=== PATIENT | female | born 1950 | race Two or more races ===

== ENCOUNTER 2017-08-10 07:00 | Inpatient (IN) | payer OTHER ==
[~2017-08-10] VITALS: Ht 152.4 cm; Wt 93.0 kg
[~2017-08-10 07:00] MED LIST: HYZAAR 100-121 UDTAB PO; JANUVIA25 MG PO; LIPITOR20 MG PO; NORVASC10 MG PO; TOPROL XL25 MG PO
[2017-08-10] MEDS ORDERED: CYMBALTA60 MG PO (09:28)
[2017-08-10] MEDS ORDERED: NEURONTIN300 MG PO (09:29)
[2017-08-10] MEDS ORDERED: CLONAZEPAM2 MG PO (09:29)
[2017-08-10] MEDS ORDERED: VITAMIN B-12500 MCG PO (09:30)
[2017-09-08] MEDS ORDERED: GABAPENTIN800 MG PO (11:16)
[2017-09-08] MEDS ORDERED: DOCUSATE SODIU100 MG PO (11:17)
[2017-09-08] MEDS ORDERED: AMOX-CLAV 875-1 EACH PO (11:18)
[2017-09-08] MEDS ORDERED: CLONAZEPAM1 MG PO (11:18)
[2017-09-08] MEDS ORDERED: PERCOCET 5-3251 EACH PO (11:18)
== END 2017-09-08 14:50 | DRG 460 ==
LOC: O/R 08-17 04:50 → SURH 08-17 04:50 → O/R 09-07 05:43 → SURH 09-07 07:00 → PED 09-07 15:37
PROVIDERS: Orthopaedic Surgery Orthopaedic Surgery of the Spine
PROC: 0SG00AJ Fusion of Lumbar Vertebral Joint with Interbody Fusion Device, Posterior Approach, Anterior Column, Open Approach (ICD-10-PCS; 2017-09-07)
PROC: 0ST20ZZ Resection of Lumbar Vertebral Disc, Open Approach (ICD-10-PCS; 2017-09-07)
PROC: 07DS3ZZ Extraction of Vertebral Bone Marrow, Percutaneous Approach (ICD-10-PCS; 2017-09-07)
PROC: 0SG00A0 Fusion of Lumbar Vertebral Joint with Interbody Fusion Device, Anterior Approach, Anterior Column, Open Approach (ICD-10-PCS; principal; 2017-09-07 07:00)
DX: M48.061 Spinal stenosis, lumbar region without neurogenic claudication (principal); M47.26 Other spondylosis with radiculopathy, lumbar region; M51.16 Intervertebral disc disorders with radiculopathy, lumbar region; E11.9 Type 2 diabetes mellitus without complications; I10 Essential (primary) hypertension

== ENCOUNTER 2017-09-08 17:59 | Inpatient (IN) | payer OTHER ==
[~2017-09-08] VITALS: Ht 154.9 cm; Wt 93.4 kg
[~2017-09-08 17:59] MED LIST changes: +AMOX-CLAV 875-1 EACH PO; +CLONAZEPAM1 MG PO; +CLONAZEPAM2 MG PO; +CYMBALTA60 MG PO; +DOCUSATE SODIU100 MG PO; +GABAPENTIN800 MG PO; +NEURONTIN300 MG PO; +PERCOCET 5-3251 EACH PO; +VITAMIN B-12500 MCG PO
[2017-09-17] MEDS ORDERED: METOPROLOL TAR100 MG PO (12:19)
[2017-09-17] MEDS ORDERED: CYMBALTA60 MG PO (12:19)
[2017-09-17] MEDS ORDERED: NEURONTIN300 MG PO (12:19)
[2017-09-17] MEDS ORDERED: AMLODIPINE BESYL5 MG PO (12:19)
[2017-09-17] MEDS ORDERED: MEDROLPACK PO (12:19)
[2017-09-17] MEDS ORDERED: SIMVASTATIN40 MG PO (12:19)
[2017-09-17] MEDS ORDERED: LEVOTHYROXINE50 MCG PO (12:19)
[2017-09-17] MEDS ORDERED: HYZAAR 100-12.1 EACH PO (12:19)
[2017-09-17] MEDS ORDERED: CLONAZEPAM1 MG PO (12:19)
[2017-09-17] MEDS ORDERED: XOPENEX0.63 MG/3 IH (12:19)
[2017-09-17] MEDS ORDERED: B Complex CAPSULE PO (12:19)
== END 2017-09-17 17:26 | DRG 191 ==
LOC: ER 17:59 → SEC-K 09-09 13:48 → MEDJ 09-09 13:48
PROC: BW24YZZ Computerized Tomography (CT Scan) of Chest and Abdomen using Other Contrast (ICD-10-PCS; 2017-09-09)
PROC: 02HV33Z Insertion of Infusion Device into Superior Vena Cava, Percutaneous Approach (ICD-10-PCS; 2017-09-09)
PROC: 4A033R1 Measurement of Arterial Saturation, Peripheral, Percutaneous Approach (ICD-10-PCS; principal; 2017-09-12)
PROC: 3E0F7GC Introduction of Other Therapeutic Substance into Respiratory Tract, Via Natural or Artificial Opening (ICD-10-PCS; 2017-09-14)
DX: J44.1 Chronic obstructive pulmonary disease with (acute) exacerbation (principal); J98.11 Atelectasis; J95.89 Other postprocedural complications and disorders of respiratory system, not elsewhere classified; D62 Acute posthemorrhagic anemia; J44.0 Chronic obstructive pulmonary disease with (acute) lower respiratory infection; Y83.8 Other surgical procedures as the cause of abnormal reaction of the patient, or of later complication, without mention of misadventure at the time of the procedure; R09.02 Hypoxemia; I10 Essential (primary) hypertension; E03.8 Other specified hypothyroidism; Z98.1 Arthrodesis status; E11.42 Type 2 diabetes mellitus with diabetic polyneuropathy; J20.9 Acute bronchitis, unspecified; E11.65 Type 2 diabetes mellitus with hyperglycemia; Y92.89 Other specified places as the place of occurrence of the external cause

== ENCOUNTER 2017-11-11 11:02 | Outpatient (CLI) | payer OTHER ==
[~2017-11-11 11:02] MED LIST changes: +AMLODIPINE BESYL5 MG PO; +B Complex CAPSULE PO; +HYZAAR 100-12.1 EACH PO; +LEVOTHYROXINE50 MCG PO; +MEDROLPACK PO; +METOPROLOL TAR100 MG PO; +SIMVASTATIN40 MG PO; +XOPENEX0.63 MG/3 IH
== END 2017-11-11 11:08 | disposition home or self-care (01) ==
LOC: RAD 11:02
DX: Z12.31 Encounter for screening mammogram for malignant neoplasm of breast (principal); Z87.898 Personal history of other specified conditions; N63.10 Unspecified lump in the right breast, unspecified quadrant; N63.20 Unspecified lump in the left breast, unspecified quadrant; M51.36 Other intervertebral disc degeneration, lumbar region; Z98.1 Arthrodesis status

== ENCOUNTER 2018-04-01 11:36 | Outpatient (CLI) | payer OTHER | END 2018-04-01 11:42 | disposition home or self-care (01) | LOC: RAD 11:36 | DX: M48.061 Spinal stenosis, lumbar region without neurogenic claudication (principal); Z98.1 Arthrodesis status ==

== ENCOUNTER 2020-03-08 11:03 | Emergency (ER) | payer OTHER ==
[~2020-03-08] VITALS: Ht 154.9 cm; Wt 90.7 kg
[2020-03-08] MEDS ORDERED: CYMBALTA60 MG PO (11:21)
[2020-03-08] MEDS ORDERED: JANUMET 50-1,01 EACH PO (11:23)
[2020-03-08] MEDS ORDERED: ZANTAC25 MG/1 ML (11:24)
[2020-03-08] MEDS ORDERED: SIMVASTATIN5 MG (11:25)
[2020-03-08] MEDS ORDERED: KETO10TA2 PO (14:45)
[2020-03-08] MEDS ORDERED: NORFLEX100MG PO (14:45)
== END 2020-03-08 15:01 | disposition home or self-care (01) ==
LOC: ER 11:03
DX: U07.1 COVID-19 (principal); R10.32 Left lower quadrant pain

== ENCOUNTER 2020-05-31 10:59 | Emergency (ER) | payer OTHER ==
[~2020-05-31] VITALS: Ht 154.9 cm; Wt 90.7 kg
[~2020-05-31 10:59] MED LIST changes: +JANUMET 50-1,01 EACH PO; +KETO10TA2 PO; +NORFLEX100MG PO; +SIMVASTATIN5 MG; +ZANTAC25 MG/1 ML
[2020-05-31] MEDS ORDERED: CELECOXIB100 MG PO (15:28)
== END 2020-05-31 15:58 | disposition home or self-care (01) ==
LOC: ER 10:59
DX: S00.83XS Contusion of other part of head, sequela (principal); S80.02XS Contusion of left knee, sequela; S50.01XS Contusion of right elbow, sequela; M54.2 Cervicalgia; W18.09XS Striking against other object with subsequent fall, sequela

== ENCOUNTER 2024-07-27 07:04 | Outpatient (CLI) | payer OTHER ==
[~2024-07-27 07:04] MED LIST changes: +CELECOXIB100 MG PO
== END 2024-07-27 07:05 | disposition home or self-care (01) ==
LOC: NUCLEAR 07:04
DX: M17.12 Unilateral primary osteoarthritis, left knee (principal)
CPT/HCPCS: 78315; A9503

== ENCOUNTER 2024-07-31 09:34 | Outpatient (CLI) | payer OTHER | END 2024-07-31 09:36 | disposition home or self-care (01) | LOC: NUCLEAR 09:34 | PROVIDERS: ATTEND Family Medicine Geriatric Medicine | DX: M81.0 Age-related osteoporosis without current pathological fracture (principal) ==